=== PATIENT | male | born 1985 | race Caucasian/White ===

== ENCOUNTER 2017-05-09 02:28 | Inpatient (IN) | payer OTHER ==
[2017-05-09] MEDS ORDERED: ALBUTEROL NEBULIZED 2.5 MG/3 ML INHALATION STA (02:52)
[2017-05-09] MEDS ORDERED: IPRATROPIUM 0.5 MG/2.5 ML NEBU INHALATION STA (02:54)
[2017-05-09] MEDS ORDERED: methylPREDNISolone SOD SUCCI 125 MG/2 ML VIAL IV STA (02:55)
--- NOTE | 2017-05-09 03:29 | ED ---
SOB HPI - General Source: patient Mode of arrival: ambulatory Limitations: no limitations <Elodia Bangura - Last Filed: 05/09/17 05:50> <Jonah Harris - Last Filed: 05/09/17 06:04> - General Chief Complaint: Shortness of Breath Stated Complaint: Asthma Attack X2 days Time Seen by Provider: 05/09/17 02:49 - History of Present Illness Initial Comments: 31-year-old male patient presents to emergency department today for evaluation of shortness of breath and chest tightness. Patient states he has had increased shortness of breath and wheezing for the last 2 days. Patient states the symptoms worsened tonight. Patient states he does have a history of asthma. States that he has been using his nebulizer breathing treatments however these have not helped. He states that he did two treatments prior to coming here without any relief of symptoms. He denies any triggering events such as upper respiratory illness. States that current symptoms may be related to seasonal ALLERGIES. Patient denies any recent fever, chills, abdominal pain , nausea, vomiting, diarrhea, constipation, back pain, numbness, tingling, dizziness, weakness, hematuria, dysuria, urinary urgency, urinary frequency, headache, visual changes, or any other complaints. Patient states that he was intubated previously about 16 years ago for an asthma exacerbation. (Elodia Bangura) - Related Data Home Medications Medication Instructions Recorded Confirmed Albuterol Nebulized [Ventolin 10/18/15 10/18/15 Nebulized] Dextroamphetamine/Amphetamine 10/18/15 10/18/15 [Adderall] FLUoxetine HCL [PROzac] 10/18/15 10/18/15 Previous Rx's Medication Instructions Recorded Albuterol Nebulized [Ventolin 2.5 mg INHALATION Q4H PRN #25 nebu 10/18/15 Nebulized] Albuterol Sulfate [Proair Hfa] 1 - 2 puff INHALATION Q4H PRN #1 10/18/15 inhaler Azithromycin [Zithromax Z-pack] 0 mg PO DIRECTED #1 pack 10/18/15 predniSONE 50 mg PO DAILY #5 tab 10/18/15 Allergies Allergy/AdvReac Type Severity Reaction Status Date / Time shellfish derived Allergy Anaphylaxis Verified 05/09/17 02:48 Review of Systems ROS Other: All systems not noted in ROS Statement are negative. <Elodia Bangura - Last Filed: 05/09/17 05:50> ROS Other: All systems not noted in ROS Statement are negative. <Jonah Harris - Last Filed: 05/09/17 06:04> ROS Statement: Those systems with pertinent positive or pertinent negative responses have been documented in the HPI. Past Medical History Past Medical History: Asthma History of Any Multi-Drug Resistant Organisms: None Reported Past Surgical History: No Surgical Hx Reported Past Psychological History: ADD/ADHD Smoking Status: Never smoker Past Alcohol Use History: None Reported Past Drug Use History: None Reported <Elodia Bangura - Last Filed: 05/09/17 05:50> General Exam Limitations: no limitations General appearance: alert, in distress, other (Well-developed, well-nourished male patient appears to be in moderate respiratory distress. Initial vital signs are temperature 97.6F, pulse 83, respirations 22, blood pressure 127/71, pulse ox 94% on room air. Patient is in tripod position with labored breathing noted. Is able to speak one to 2 words at a time.) ENT exam: Present: normal exam, normal oropharynx, mucous membranes moist Neck exam: Present: normal inspection. Absent: tenderness, meningismus, lymphadenopathy Respiratory exam: Present: wheezes (Tight expiratory and inspiratory wheezing noted throughout all posterior lung rizvi), accessory muscle use, decreased breath sounds. Absent: normal lung sounds bilaterally, respiratory distress, rales, rhonchi, stridor Cardiovascular Exam: Present: regular rate, normal rhythm, normal heart sounds. Absent: systolic murmur, diastolic murmur, rubs, gallop, clicks GI/Abdominal exam: Present: soft, normal bowel sounds. Absent: distended, tenderness, guarding, rebound, rigid Neurological exam: Present: alert, oriented X3, CN II-XII intact Psychiatric exam: Present: normal affect, normal mood Skin exam: Present: warm, dry, intact, normal color. Absent: rash <Elodia Bangura - Last Filed: 05/09/17 05:50> Course <Elodia Bangura - Last Filed: 05/09/17 05:50> <Jonah Harris - Last Filed: 05/09/17 06:04> Vital Signs 05/09/17 05/09/17 05/09/17 02:45 03:03 03:25 Temperature 97.6 F Pulse Rate 83 80 88 Respiratory 22 24 Rate Blood Pressure 127/71 O2 Sat by Pulse 94 L Oximetry 05/09/17 05/09/17 05/09/17 04:00 04:10 04:35 Temperature Pulse Rate 88 93 80 Respiratory 24 Rate Blood Pressure O2 Sat by Pulse 94 L 95 Oximetry 05/09/17 06:01 Temperature Pulse Rate 87 Respiratory 20 Rate Blood Pressure 142/78 O2 Sat by Pulse 96 Oximetry - Reevaluation(s) Reevaluation #1: 05/09/17 04:32 Did reevaluate patient who states that he still feels short of breath. He also reports increased anxiety. States that he feels like he can't relax. I am epinephrine and IV magnesium has been ordered. Patient's lung sounds have improved slightly. The patient seems to be moving more air however he remains wheezy throughout all rizvi. (Elodia Bangura) Medical Decision Making - Radiology Data Radiology results: report reviewed, image reviewed <Elodia Bangura - Last Filed: 05/09/17 05:50> <Jonah Harris - Last Filed: 05/09/17 06:04> - Medical Decision Making 31-year-old male patient presented for evaluation of shortness of breath and wheezing 2 days. Upon presentation patient was unable to speak full sentences , had an oxygen saturation 94%, and had tight expiratory wheezing throughout all lung rizvi with decreased air movement. Patient did receive a continuous updraft treatment, 125 mg Solu-Medrol IV push, 0.3 mg of epinephrine IM, and 2 g of IV magnesium. He states that his symptoms are somewhat improved however he still feels short of breath. Patient states that his home methods were not working and he feels that he would come back very shortly after being discharged if that were the case. Patient will be admitted for acute asthma exacerbation. He'll be given 125 mg of Solu-Medrol every 6 hours and DuoNeb updraft treatment every 4 hours. Patient states he has been treated by Dr. Perdue in the past, he will be consulted for pulmonology. Patient will be admitted to the care of Dr. Stanley. (Elodia Bangura) I saw this patient in conjunction with the physician legal executive assistant. I performed independent history and physical exam. Agree with case management. (Jonah Harris) - Radiology Data Two-view x-ray of the chest shows of the lungs are unremarkable no consolidation. Pleural spaces unremarkable with no pneumothorax. Heart is unremarkable with no cardiomegaly. Mediastinum is unremarkable. Bones and joints show mild degenerative changes of the spine. Soft tissue show her left nipple ring. Impression by Dr. Wray shows no acute findings. (Elodia Bangura) Disposition Decision to Admit Reason: Admit from EC Decision Date: 05/09/17 Decision Time: 05:49 <Elodia Bangura - Last Filed: 05/09/17 05:50> <Jonah Harris - Last Filed: 05/09/17 06:04> Clinical Impression: Acute asthma exacerbation Disposition: ADMITTED IP TO THIS HOSP
[2017-05-09] MEDS ORDERED: MAGNESIUM SULFATE-D5W PMX 1 GM in DEXTROSE/WATER 1 100ML.BAG IVPB ONE (03:32)
[2017-05-09] MEDS ORDERED: MAGNESIUM SULFATE-D5W PMX 2 GM in DEXTROSE/WATER 1 100ML.BAG IVPB ONE (03:37)
[2017-05-09] MEDS ORDERED: EPINEPHrine 1 MG/ML 1 ML AMP IM STA (03:37)
[2017-05-09] MEDS ORDERED: LORazepam 2 MG/ML SYRINGE IV STA (04:13)
--- NOTE | 2017-05-09 04:55 | XR ---
EXAM: XR Chest, 2 Views CLINICAL HISTORY: Reason: Pain TECHNIQUE: Frontal and lateral views of the chest. COMPARISON: No relevant prior studies available. FINDINGS: Lungs: Unremarkable. No consolidation. Pleural space: Unremarkable. No pneumothorax. Heart: Unremarkable. No cardiomegaly. Mediastinum: Unremarkable. Bones/joints: Mild degenerative changes of the spine. Soft tissues: Left nipple ring. IMPRESSION: No acute findings.
[2017-05-09] MEDS ORDERED: methylPREDNISolone SOD SUCCI 125 MG/2 ML VIAL IV SCH ×2 (05:45→10:00)
[2017-05-09] MEDS ORDERED: NALOXONE 0.4 MG/ML 1 ML VIAL IV PRN (05:45)
[2017-05-09] MEDS ORDERED: IBUPROFEN 400 MG TAB PO PRN (05:45)
[2017-05-09] MEDS ORDERED: IPRATROPIUM-ALBUTEROL 3 ML NEB INHALATION SCH (05:45)
[2017-05-09 06:18] VITALS: BMI 22.7
[2017-05-09 06:31] LABS: Basophils # (A) 0.1 k/uL (0-0.2); Basophils % (A) 0 %; CH 31.3; CHCM 33.1; Eosinophils # (A) 0.1 k/uL (0-0.7); Eosinophils % (A) 1 %; HCT 44.2 % (39.0-53.0); HDW 2.08; HGB 14.3 gm/dL (13.0-17.5); Luc # (Auto) 0.07; Luc % (Auto) 0; Lymphocytes # (A) 0.5 k/uL (1.0-4.8); Lymphocytes % (A) 3 %; MCH 30.7 pg (25.0-35.0); MCHC 32.3 g/dL (31.0-37.0); Mean Platelet Volume 8.7; Monocytes # (A) 0.5 k/uL (0-1.0); Monocytes % (A) 3 %; Neutrophils # (A) 15.9 k/uL (1.3-7.7); Neutrophils % (A) 93 %; RBC 4.65 m/uL (4.30-5.90); RDW 14.7 % (11.5-15.5); WBC (Perox) 16.61
[2017-05-09 06:46] LABS: ALT 123 U/L (21-72); AST 56 U/L (17-59); Alkaline Phosphatase 75 U/L (38-126); Anion Gap 12 mmol/L; Blood Urea Nitrogen 17 mg/dL (9-20); Calcium 8.9 mg/dL (8.4-10.2); Carbon Dioxide 23 mmol/L (22-30); Chloride 101 mmol/L (98-107); Glucose 112 mg/dL (74-99); Non-African American GFR(MDRD) >60 (>60 ml/min/1.73 sqM); Potassium 4.6 mmol/L (3.5-5.1); Sodium 136 mmol/L (137-145); Total Bilirubin 0.3 mg/dL (0.2-1.3); Total Protein 6.5 g/dL (6.3-8.2)
[2017-05-09] MEDS: IPRATROPIUM-ALBUTEROL 3 ML NEB INHALATION SCH ×5 (08:10→19:32)
[2017-05-09] MEDS ORDERED: NON-FORMULARY DRUG (Dextroamphetamine/Amphetamine [Adderall] 30 MG) PO SCH (11:15)
[2017-05-09] MEDS: SYMBICORT 160-4.5 MCG INHALER INHALATION SCH ×2 (11:25→19:32)
[2017-05-09] MEDS: FLUoxetine HCL 20 MG CAP PO SCH ×2 (11:53→21:02)
[2017-05-09 12:25] LABS: Glucose,Whole Blood 152 mg/dL (75-99)
--- NOTE | 2017-05-09 12:34 | P.HPIM ---
History of Present Illness 31-year-old male patient presents to emergency department today for evaluation of shortness of breath and chest tightness. Patient states he has had increased shortness of breath and wheezing for the last 3 days. Symptoms were worse yesterday night. Patient states he does have a history of asthma. States that he has been using his nebulizer breathing treatments however these have not helped. He states that he did two treatments prior to coming here without any relief of symptoms. He denies any triggering events such as upper respiratory illness. States that current symptoms may be related to seasonal ALLERGIES. Patient denies any recent fever, chills, abdominal pain, nausea, vomiting, diarrhea, constipation, back pain, numbness, tingling, dizziness, weakness, hematuria, dysuria, urinary urgency, urinary frequency, headache, visual changes, or any other complaints. Patient states that he was intubated previously about 16 years ago for an asthma exacerbation. Patient is still having expiratory wheeze. Although significant improvement since yesterday patient was diagnosed with asthma as a child Review of Systems REVIEW OF SYSTEMS: CONSTITUTIONAL: No fever, no malaise, no fatigue. HEENT: No recent visual problems or hearing problems. Denied any sore throat. CARDIOVASCULAR: No chest pain, orthopnea, PND, no palpitations, no syncope. PULMONARY: As described in HPI GASTROINTESTINAL: No diarrhea, no nausea, no vomiting, no abdominal pain. Normoactive bowel sounds. NEUROLOGICAL: No headaches, no weakness, no numbness. HEMATOLOGICAL: Denies any bleeding or petechiae. GENITOURINARY: Denies any burning micturition, frequency, or urgency. MUSCULOSKELETAL/RHEUMATOLOGICAL: Denies any joint pain, swelling, or any muscle pain. ENDOCRINE: Denies any polyuria or polydipsia. The rest of the 14-point review of systems is negative. Past Medical History Past Medical History: Asthma History of Any Multi-Drug Resistant Organisms: None Reported Past Surgical History: No Surgical Hx Reported Past Psychological History: ADD/ADHD Smoking Status: Never smoker Past Alcohol Use History: None Reported Past Drug Use History: None Reported - Past Family History Father Family Medical History: No Reported History Mother Family Medical History: No Reported History Medications and Allergies Home Medications Medication Instructions Recorded Confirmed Type Albuterol Sulfate [Proair Hfa] 2 puff INHALATION RT-Q4H PRN 05/09/17 05/09/17 History Dextroamphetamine/Amphetamine 30 mg PO BID 05/09/17 05/09/17 History [Adderall] FLUoxetine HCL [PROzac] 20 mg PO BID 05/09/17 05/09/17 History Allergies Allergy/AdvReac Type Severity Reaction Status Date / Time shellfish derived Allergy Anaphylaxis Verified 05/09/17 08:05 Physical Exam Vitals: Vital Signs Temp Pulse Pulse Resp BP BP Pulse Ox 05/09/17 11:40 88 05/09/17 11:26 84 05/09/17 08:20 96 05/09/17 08:10 92 05/09/17 07:00 98.6 F 103 H 18 105/62 93 L 05/09/17 06:01 87 20 142/78 96 05/09/17 04:35 80 24 95 05/09/17 04:10 93 94 L 05/09/17 04:00 88 05/09/17 03:25 88 24 05/09/17 03:03 80 05/09/17 02:45 97.6 F 83 22 127/71 94 L Intake and Output 05/08/17 05/09/17 05/09/17 22:59 06:59 14:59 Intake Total 240 Balance 240 Intake: Oral 240 Other: Voiding Method Toilet Weight 65.771 kg PHYSICAL EXAMINATION: GENERAL: The patient is alert and oriented x3, not in any acute distress. Well developed, well nourished. HEENT: Pupils are round and equally reacting to light. EOMI. No scleral icterus. No conjunctival pallor. Normocephalic, atraumatic. No pharyngeal erythema. No thyromegaly. CARDIOVASCULAR: S1 and S2 present. No murmurs, rubs, or gallops. PULMONARY: Significant expiratory wheezing, minimally decreased air entry into bilateral lung rizvi no crackles are appreciated. ABDOMEN: Soft, nontender, nondistended, normoactive bowel sounds. No palpable organomegaly. MUSCULOSKELETAL: No joint swelling or deformity. EXTREMITIES: No cyanosis, clubbing, or pedal edema. NEUROLOGICAL: Gross neurological examination did not reveal any focal deficits. SKIN: No rashes. Results CBC & Chem 7: 05/09/17 06:00 05/09/17 06:00 Labs: Abnormal Lab Results - Last 24 Hours (Table) 05/09/17 05/09/17 05/09/17 Range/Units 06:00 06:00 12:19 WBC 17.0 H (3.8-10.6) k/uL Neutrophils # 15.9 H (1.3-7.7) k/uL Lymphocytes # 0.5 L (1.0-4.8) k/uL Sodium 136 L (137-145) mmol/L Glucose 112 H (74-99) mg/dL POC Glucose (mg/dL) 152 H (75-99) mg/dL ALT 123 H (21-72) U/L Assessment and Plan Plan: #1 acute hypoxic respiratory failure: Secondary to asthma exacerbation patient appears to have chronic intermittent asthma now in status asthmaticus with significant improvement in symptoms patient will be continued on IV steroids inhalational steroids and albuterol and long-acting beta agonist. Patient will need to be discharged on tapering dose of steroids tomorrow morning. #2 asthmatic bronchitis: ALLERGIC bronchitis will not require any antibiotics. #3 leukocytosis: Reactive no signs or symptoms of infection at this point of time. #4 depression
[2017-05-09] MEDS: INSULIN LISPRO (humaLOG) 300 UNIT/3 ML VIAL SQ SCH ×3 (12:37→21:02)
[2017-05-09 13:19] LABS: Hemoglobin A1C 5.3 % (4.2-6.1)
[2017-05-09] MEDS: traMADol 50 MG TAB PO PRN ×2 (14:20→20:16)
[2017-05-09] MEDS: SODIUM CHLORIDE 0.9% 1,000 ML IV SCH (16:23)
--- NOTE | 2017-05-09 16:24 | XR ---
Abdomen HISTORY: Pain, history of kidney stones Frontal view of the abdomen on 2 images Lung bases are clear. No evident bowel obstruction or pneumoperitoneum. Bowel gas may obscure underly ing detail. Calcifications not evident. Bone mineralization is normal. IMPRESSION: Nonobstructive bowel gas pattern.
[2017-05-09] MEDS: KETOROLAC 30 MG/ML 1 ML VIAL IVP PRN ×2 (16:28→22:18)
--- NOTE | 2017-05-09 16:44 | P.CNPUL ---
History of Present Illness Consult date: 05/09/17 Reason for consult: dyspnea History of present illness: A very pleasant 31-year-old male patient, asthmatic since childhood, coming in with increased cough chest congestion and chest tightness and wheezing which is typical of an acute asthma exacerbation. The patient claims that his asthma has been mild intermittent in nature and he has required only albuterol HFA and nebulized treatment only on as-needed basis. He did not require any form of maintenance treatment over the years. He has one episode of respiratory failure requiring intubation mechanical ventilation this occurred after he was exposed to shellfish where he had an anaphylactic reaction. Otherwise, the patient has been doing relatively well and his last treatment for asthma exacerbation was more than a year ago. He has not required systemic steroids. His stents required any antibiotic treatment. 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 No exposure to any industrial fumes or chemicals. No environmental ALLERGIES. No sinus pain or drainage. No heartburn. No nausea. No vomiting. No pleurisy. No chest pain. 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 The patient has been placed on Symbicort. The patient has been placed on DuoNeb neb last treatment [id number]. The patient has been placed on IV Solu-Medrol. Feeling much better compared to yesterday. No family history of bronchial asthma. He does with his and has 2 children which are free of any asthma. Chest x-ray is clear. No nasal polyposis.. Review of Systems Constitutional: Denies chills, Denies fever Eyes: denies blurred vision, denies bulging eye, denies decreased vision Ears: deny: ear discharge, earache, tinnitus Ears, nose, mouth and throat: Denies headache, Denies sore throat Cardiovascular: Reports shortness of breath Respiratory: Reports dyspnea, Reports wheezing Gastrointestinal: Denies abdominal pain, Denies diarrhea, Denies nausea, Denies vomiting Genitourinary: Reports as per HPI Musculoskeletal: Denies myalgias Musculoskeletal: absent: ankle pain, ankle stiffness, ankle swelling Integumentary: Denies pruritus, Denies rash Neurological: Denies numbness, Denies weakness Psychiatric: Denies anxiety, Denies depression Endocrine: Denies fatigue, Denies weight change Past Medical History Past Medical History: Asthma History of Any Multi-Drug Resistant Organisms: None Reported Past Surgical History: No Surgical Hx Reported Past Psychological History: ADD/ADHD Smoking Status: Never smoker Past Alcohol Use History: None Reported Past Drug Use History: None Reported - Past Family History Father Family Medical History: No Reported History Mother Family Medical History: No Reported History Medications and Allergies Home Medications Medication Instructions Recorded Confirmed Type Albuterol Sulfate [Proair Hfa] 2 puff INHALATION RT-Q4H PRN 05/09/17 05/09/17 History Dextroamphetamine/Amphetamine 30 mg PO BID 05/09/17 05/09/17 History [Adderall] FLUoxetine HCL [PROzac] 20 mg PO BID 05/09/17 05/09/17 History Allergies Allergy/AdvReac Type Severity Reaction Status Date / Time shellfish derived Allergy Anaphylaxis Verified 05/09/17 08:05 Physical Exam Vitals: Vital Signs Temp Pulse Pulse Resp BP BP Pulse Ox 05/09/17 15:42 88 05/09/17 15:30 80 05/09/17 14:46 98.9 F 109 H 18 134/60 91 L 05/09/17 11:40 88 05/09/17 11:26 84 05/09/17 08:20 96 05/09/17 08:10 92 05/09/17 07:00 98.6 F 103 H 18 105/62 93 L 05/09/17 06:01 87 20 142/78 96 05/09/17 04:35 80 24 95 05/09/17 04:10 93 94 L 05/09/17 04:00 88 05/09/17 03:25 88 24 05/09/17 03:03 80 05/09/17 02:45 97.6 F 83 22 127/71 94 L Intake and Output 05/09/17 05/09/17 05/09/17 06:59 14:59 22:59 Intake Total 440 Balance 440 Intake: Oral 440 Other: Voiding Method Toilet # Voids 2 # Bowel Movements 0 Weight 65.771 kg Gen. appearance she is calm and comfortable likely distress. Head is atraumatic normocephalic.Head exam was generally normal. There was no scleral icterus or corneal arcus. Mucous membranes were moist.Neck was supple and without jugular venous distension, thyromegaly, or carotid bruits. Carotids were easily palpable bilaterally. There was no adenopathy. Lung sounds are diminished bilaterally and diffuse scattered expiratory wheezes throughout the lung rizvi.Cardiac exam revealed the PMI to be normally situated and sized. The rhythm was regular and no extrasystoles were noted during several minutes of auscultation. The first and second heart sounds were normal and physiologic splitting of the second heart sound was noted. There were no murmurs, rubs, clicks, or gallops.Abdominal exam revealed normal bowel sounds. The abdomen was soft, non-tender, and without masses, organomegaly, or appreciable enlargement of the abdominal aorta.Examination of the extremities revealed easily palpable radial, femoral and pedal pulses. There was no cyanosis, clubbing or edema. Skin is within normal without any ulcers or wounds or eczema. Skeletal exam is negative for any arthritis or joint swelling. Neuro exam is negative for any change in mental status or focal neurological deficits. Results - Laboratory Findings CBC and BMP: 05/09/17 06:00 05/09/17 06:00 Abnormal lab findings: Abnormal Labs 05/09/17 05/09/17 05/09/17 06:00 06:00 12:19 WBC 17.0 H Neutrophils # 15.9 H Lymphocytes # 0.5 L Sodium 136 L Glucose 112 H POC Glucose (mg/dL) 152 H ALT 123 H - Diagnostic Findings Chest x-ray: image reviewed Assessment and Plan Plan: Assessment 1 shortness of breath secondary to an acute asthma exacerbation/bronchitis 2 mild intermittent bronchial asthma at baseline 3 nasal septal deviation/traumatic in nature 4 mild leukocytosis Plan Fully agree on the current treatment. Anticipate improvement. Will need outpatient follow-up in consultation for a maintenance treatment for bronchial asthma. He is stable. Chest x-rays clear. We'll continue to follow.
[2017-05-09 17:12] LABS: Glucose,Whole Blood 187 mg/dL (75-99)
[2017-05-09] MEDS: PANTOPRAZOLE 40 MG TABLET PO SCH (17:31)
[2017-05-09] MEDS ORDERED: KETOROLAC 30 MG/ML 1 ML VIAL IVP SCH (18:00)
[2017-05-09] MEDS ORDERED: SYMBICORT 160-4.5 MCG INHALER INHALATION SCH (20:00)
[2017-05-09] MEDS: FAMOTIDINE 20 MG TAB PO SCH (21:02)
[2017-05-09] MEDS: methylPREDNISolone SOD SUCCI 40 MG/ML 1 ML VIAL IV SCH (21:02)
[2017-05-09 21:13] LABS: Glucose,Whole Blood 183 mg/dL (75-99)
[2017-05-09] MEDS: IPRATROPIUM-ALBUTEROL 3 ML NEB INHALATION PRN (23:29)
[2017-05-10] MEDS: SODIUM CHLORIDE 0.9% 1,000 ML IV SCH ×2 (03:05→12:38)
[2017-05-10] MEDS: IPRATROPIUM-ALBUTEROL 3 ML NEB INHALATION PRN (03:55)
[2017-05-10] MEDS: INSULIN LISPRO (humaLOG) 300 UNIT/3 ML VIAL SQ SCH ×2 (07:25→12:38)
[2017-05-10 07:30] LABS: Glucose,Whole Blood 128 mg/dL (75-99)
[2017-05-10] MEDS: IPRATROPIUM-ALBUTEROL 3 ML NEB INHALATION SCH ×2 (07:34→12:00)
[2017-05-10] MEDS: SYMBICORT 160-4.5 MCG INHALER INHALATION SCH (07:35)
[2017-05-10 07:40] VITALS: BP 112/72; RESP 20; TEMP 97.4
[2017-05-10] MEDS: methylPREDNISolone SOD SUCCI 40 MG/ML 1 ML VIAL IV SCH (08:36)
[2017-05-10] MEDS: PANTOPRAZOLE 40 MG TABLET PO SCH (08:37)
[2017-05-10] MEDS: FLUoxetine HCL 20 MG CAP PO SCH (08:37)
[2017-05-10] MEDS: FAMOTIDINE 20 MG TAB PO SCH (08:37)
[2017-05-10 12:14] VITALS: PULSE 85
--- NOTE | 2017-05-10 14:14 | P.PN ---
Subjective A very pleasant 31-year-old male patient, asthmatic since childhood, coming in with increased cough chest congestion and chest tightness and wheezing which is typical of an acute asthma exacerbation. The patient claims that his asthma has been mild intermittent in nature and he has required only albuterol HFA and nebulized treatment only on as-needed basis. He did not require any form of maintenance treatment over the years. He has one episode of respiratory failure requiring intubation mechanical ventilation this occurred after he was exposed to shellfish where he had an anaphylactic reaction. Otherwise, the patient has been doing relatively well and his last treatment for asthma exacerbation was more than a year ago. He has not required systemic steroids. His stents required any antibiotic treatment. 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 No exposure to any industrial fumes or chemicals. No environmental ALLERGIES. No sinus pain or drainage. No heartburn. No nausea. No vomiting. No pleurisy. No chest pain. 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 The patient has been placed on Symbicort. The patient has been placed on DuoNeb neb last treatment [id number]. The patient has been placed on IV Solu-Medrol. Feeling much better compared to yesterday. No family history of bronchial asthma. He does with his and has 2 children which are free of any asthma. Chest x-ray is clear. No nasal polyposis.. On 05/10/2017, patient is being seen in follow-up in regards to his asthma exacerbation. He is significantly improved. No respiratory difficulties. He has some minimal residual wheezing. Had marked improvement in his condition and the patient may be considered for discharge on a prednisone burst taper. No fever. No chills. No pleurisy. No hemoptysis. No other complaints otherwise. Objective - Vital Signs Vital signs: Vital Signs Temp 97.4 F L 05/10/17 07:00 Pulse 85 05/10/17 12:14 Resp 20 05/10/17 08:00 BP 112/72 05/10/17 07:00 Pulse Ox 94 L 05/10/17 07:00 Intake & Output 05/09/17 05/10/17 05/10/17 18:59 06:59 18:59 Intake Total 440 1200 Balance 440 1200 Intake: Oral 440 1200 Other: Voiding Method Toilet # Voids 2 0 # Bowel Movements 0 - Exam Gen. appearance she is calm and comfortable likely distress. Head is atraumatic normocephalic.Head exam was generally normal. There was no scleral icterus or corneal arcus. Mucous membranes were moist.Neck was supple and without jugular venous distension, thyromegaly, or carotid bruits. Carotids were easily palpable bilaterally. There was no adenopathy. Lung sounds are improved and there is diminished wheezing.Cardiac exam revealed the PMI to be normally situated and sized. The rhythm was regular and no extrasystoles were noted during several minutes of auscultation. The first and second heart sounds were normal and physiologic splitting of the second heart sound was noted. There were no murmurs, rubs, clicks, or gallops.Abdominal exam revealed normal bowel sounds. The abdomen was soft, non-tender, and without masses, organomegaly , or appreciable enlargement of the abdominal aorta.Examination of the extremities revealed easily palpable radial, femoral and pedal pulses. There was no cyanosis, clubbing or edema. Skin is within normal without any ulcers or wounds or eczema. Skeletal exam is negative for any arthritis or joint swelling. Neuro exam is negative for any change in mental status or focal neurological deficits. - Labs CBC & Chem 7: 05/09/17 06:00 05/09/17 06:00 Labs: Abnormal Lab Results - Last 24 Hours (Table) 05/09/17 05/09/17 05/10/17 Range/Units 17:08 20:54 06:59 POC Glucose (mg/dL) 187 H 183 H 128 H (75-99) mg/dL Assessment and Plan Plan: Assessment 1 shortness of breath secondary to an acute asthma exacerbation/bronchitis, improving and there has been significant improvement over the past 24 hours with a combination of bronchodilators and steroids 2 mild intermittent bronchial asthma at baseline 3 nasal septal deviation/traumatic in nature 4 mild leukocytosis Plan Discharge planning is in progress on a prednisone burst taper and albuterol solution and HFA on an estimated basis. No need for maintenance at this point for asthma control knowing that the patient's disease was mild intermittent nature. Discharge per medicine
--- NOTE | 2017-05-10 19:15 | P.DS ---
Providers Date of admission: 05/09/17 05:42 Attending physician: Zahida Stanley Consults: 05/09/17 05:45 Consult Physician Stat Consulting Provider: Ernesto Perdue Consult Reason/Comments: Acute Asthma Exacerbation Do you want consulting provider notified?: Yes Primary care physician: Kenrick Wahl [facility] Course: This 28-year-old gentleman was admitted with the bronchial asthma acute exacerbation as well as acute hypoxic respiratory failure. The patient was seen in consultation by Dr. Coffman. Patient was treated with steroids and bronchodilators. Patient improved significantly. Dr. Coffman recommended to continue bronchodilators and assess tapering doses steroids. I recommended the patient to follow up closely with the primary physician and as well as Dr. Coffman patient understands and agrees. On exam vitals stable. Cardio S1 and S2 normal. Respirator system breath sounds equal. Few rhonchi plus expiratory wheezing also present. Abdomen soft nontender. Final diagnoses 1. Bronchial asthma acute exacerbation with acute hypoxic respiratory failure improved. 2. Asthmatic bronchitis. 3. Leukocytosis 4. Depression. Plan - Discharge Summary New Discharge Prescriptions: New Budesonide-Formot 160-4.5 Mcg [Symbicort 160-4.5 Mcg Inhaler] 2 puff INHALATION RT-BID #1 puff predniSONE 10 mg PO DIRECTED #30 tab Continue FLUoxetine HCL [PROzac] 20 mg PO BID Dextroamphetamine/Amphetamine [Adderall] 30 mg PO BID Albuterol Sulfate [Proair Hfa] 2 puff INHALATION RT-Q4H PRN #1 PRN Reason: Shortness Of Breath Discharge Medication List Dextroamphetamine/Amphetamine [Adderall] 30 mg PO BID 05/09/17 [History] FLUoxetine HCL [PROzac] 20 mg PO BID 05/09/17 [History] Albuterol Sulfate [Proair Hfa] 2 puff INHALATION RT-Q4H PRN #1 05/10/17 [Rx] Budesonide-Formot 160-4.5 Mcg [Symbicort 160-4.5 Mcg Inhaler] 2 puff INHALATION RT-BID #1 puff 05/10/17 [Rx] predniSONE 10 mg PO DIRECTED #30 tab 05/10/17 [Rx] Follow up Appointment(s)/Referral(s): Kenrick Wahl DO [Primary Care Provider] - 1-2 days Marry Coffman MD [STAFF PHYSICIAN] - 1 Week Ambulatory/Diagnostic Orders: Complete Blood Count w/diff [LAB.AMB] Location: Determined By Patient Activity/Diet/Wound Care/Special Instructions: New consult for bronchial asthma treatment plan diet reg act limited till f/u Discharge Disposition: HOME SELF-CARE
== END 2017-05-10 15:57 | disposition home or self-care (01) | DRG 202 ==
LOC: EC 02:28 → 4MS4W 05:42
PROVIDERS: ADMIT Internal Medicine; ATTEND Internal Medicine
DX: J45.21 Mild intermittent asthma with (acute) exacerbation (principal); J96.01 Acute respiratory failure with hypoxia; F32.9 Major depressive disorder, single episode, unspecified; F90.9 Attention-deficit hyperactivity disorder, unspecified type; J34.2 Deviated nasal septum; Z79.899 Other long term (current) drug therapy; Z91.013 Allergy to seafood
CPT/HCPCS: 71020; 74000; 80053; 83036; 85025; 94640; 94644; 94760; 96365; 96372; 96374; 96375; 99285

== ENCOUNTER 2017-12-13 07:32 | Inpatient (IN) | payer OTHER ==
[2017-12-13] MEDS ORDERED: MAGNESIUM SULFATE-D5W PMX 1 GM in DEXTROSE/WATER 1 100ML.BAG IVPB STA (07:35)
[2017-12-13] MEDS ORDERED: SODIUM CHLORIDE 0.9% 500 ML IV STA (07:35)
[2017-12-13] MEDS ORDERED: SODIUM CHLORIDE 0.9% 1,000 ML IV STA (07:35)
--- NOTE | 2017-12-13 07:38 | ED ---
Asthma HPI - General Stated Complaint: MACIE Time Seen by Provider: 12/13/17 07:32 Source: patient, EMS, RN notes reviewed Mode of arrival: EMS - History of Present Illness Initial Comments: This is a 32-year-old male with a history of asthma states he had the onset of shortness of breath and feeling which is gotten progressively worse throughout the evening. He also states she's had some chest pain because of the difficulty breathing tightness. No fevers chills nausea vomiting sweats he was given a DuoNeb by paramedics this didn't help much and was given subcutaneous epinephrine. No DuoNeb and another epinephrine. He is reported to have diffuse wheezing but does report he is feeling somewhat improved. No phlegm production no other symptoms no other modifying factors at this time MD Complaint: "asthma attack", shortness of breath - Related Data Home Medications Medication Instructions Recorded Confirmed Dextroamphetamine/Amphetamine 30 mg PO BID 05/09/17 05/09/17 [Adderall] FLUoxetine HCL [PROzac] 20 mg PO BID 05/09/17 05/09/17 Previous Rx's Medication Instructions Recorded Albuterol Sulfate [Proair Hfa] 2 puff INHALATION RT-Q4H PRN #1 05/10/17 Budesonide-Formot 160-4.5 Mcg 2 puff INHALATION RT-BID #1 puff 05/10/17 [Symbicort 160-4.5 Mcg Inhaler] predniSONE 10 mg PO DIRECTED #30 tab 05/10/17 Allergies Allergy/AdvReac Type Severity Reaction Status Date / Time shellfish derived Allergy Anaphylaxis Verified 05/09/17 08:05 Review of Systems ROS Statement: Those systems with pertinent positive or pertinent negative responses have been documented in the HPI. ROS Other: All systems not noted in ROS Statement are negative. Past Medical History Past Medical History: Asthma History of Any Multi-Drug Resistant Organisms: None Reported Past Surgical History: No Surgical Hx Reported Past Psychological History: ADD/ADHD Smoking Status: Never smoker Past Alcohol Use History: None Reported Past Drug Use History: None Reported - Past Family History Father Family Medical History: No Reported History Mother Family Medical History: No Reported History General Exam - General Exam Comments Initial Comments: This is a well-developed well-nourished awake alert oriented 3 male he does demonstrate audible wheezing. General appearance: alert, anxious, in distress Head exam: Present: atraumatic, normocephalic, normal inspection Eye exam: Present: normal appearance, PERRL, EOMI. Absent: scleral icterus, conjunctival injection, periorbital swelling ENT exam: Present: normal exam, mucous membranes moist Neck exam: Present: normal inspection. Absent: tenderness, meningismus, lymphadenopathy Respiratory exam: Present: respiratory distress, wheezes, accessory muscle use, decreased breath sounds. Absent: rales, rhonchi, stridor, chest wall tenderness Cardiovascular Exam: Present: normal rhythm, tachycardia, normal heart sounds. Absent: systolic murmur, diastolic murmur, rubs, gallop, clicks GI/Abdominal exam: Present: soft, normal bowel sounds. Absent: distended, tenderness, guarding, rebound, rigid Extremities exam: Present: normal inspection, full ROM, normal capillary refill. Absent: tenderness, pedal edema, joint swelling, calf tenderness Back exam: Present: normal inspection Neurological exam: Present: alert, oriented X3, CN II-XII intact Psychiatric exam: Present: normal affect, normal mood Skin exam: Present: warm, dry, intact, normal color. Absent: rash Course Vital Signs 12/13/17 12/13/17 12/13/17 07:33 08:12 08:22 Temperature 97.2 F L Pulse Rate 105 H 84 78 Respiratory 26 H Rate Blood Pressure 156/68 O2 Sat by Pulse 94 L Oximetry 12/13/17 08:49 Temperature Pulse Rate 86 Respiratory 18 Rate Blood Pressure 131/78 O2 Sat by Pulse 96 Oximetry - Reevaluation(s) Reevaluation #1: 12/13/17 08:08 Patient does appear to be resting more comfortably than arrival he still demonstrating diffuse wheezing with some accessory muscle and chest wall movement. He will receive a DuoNeb. Reevaluation #2: 12/13/17 10:01 The patient still demonstrates marked dyspnea with diffuse wheezing he will be admitted I did discuss this with him. Medical Decision Making - Lab Data Result diagrams: 12/13/17 07:40 12/13/17 07:40 Lab Results 12/13/17 12/13/17 12/13/17 Range/Units 07:40 07:40 07:40 WBC 15.4 H (3.8-10.6) k/uL RBC 4.66 (4.30-5.90) m/uL Hgb 13.5 (13.0-17.5) gm/dL Hct 42.8 (39.0-53.0) % MCV 91.9 (80.0-100.0) fL MCH 29.1 (25.0-35.0) pg MCHC 31.6 (31.0-37.0) g/dL RDW 13.7 (11.5-15.5) % Plt Count 175 (150-450) k/uL Neutrophils % 83 % Lymphocytes % 8 % Monocytes % 4 % Eosinophils % 3 % Basophils % 0 % Neutrophils # 12.8 H (1.3-7.7) k/uL Lymphocytes # 1.3 (1.0-4.8) k/uL Monocytes # 0.7 (0-1.0) k/uL Eosinophils # 0.5 (0-0.7) k/uL Basophils # 0.0 (0-0.2) k/uL PT (9.0-12.0) sec INR (<1.2) APTT (22.0-30.0) sec D-Dimer (<0.60) mg/L FEU Sodium 145 (137-145) mmol/L Potassium 4.0 (3.5-5.1) mmol/L Chloride 113 H (98-107) mmol/L Carbon Dioxide 18 L (22-30) mmol/L Anion Gap 14 mmol/L BUN 15 (9-20) mg/dL Creatinine 0.71 (0.66-1.25) mg/dL Est GFR (CKD-EPI)AfAm >90 (>60 ml/min/1.73 sqM) Est GFR (CKD-EPI)NonAf >90 (>60 ml/min/1.73 sqM) Glucose 138 H (74-99) mg/dL Calcium 8.2 L (8.4-10.2) mg/dL Magnesium 1.9 (1.6-2.3) mg/dL Total Bilirubin 0.2 (0.2-1.3) mg/dL AST 24 (17-59) U/L ALT 31 (21-72) U/L Alkaline Phosphatase 49 (38-126) U/L Total Creatine Kinase 220 H (55-170) U/L CK-MB (CK-2) 3.7 H* (0.0-2.4) ng/mL CK-MB (CK-2) Rel Index 1.7 Troponin I <0.012 (0.000-0.034) ng/mL NT-Pro-B Natriuret Pep pg/mL Total Protein 6.0 L (6.3-8.2) g/dL Albumin 3.6 (3.5-5.0) g/dL 12/13/17 12/13/17 Range/Units 07:40 07:40 WBC (3.8-10.6) k/uL RBC (4.30-5.90) m/uL Hgb (13.0-17.5) gm/dL Hct (39.0-53.0) % MCV (80.0-100.0) fL MCH (25.0-35.0) pg MCHC (31.0-37.0) g/dL RDW (11.5-15.5) % Plt Count (150-450) k/uL Neutrophils % % Lymphocytes % % Monocytes % % Eosinophils % % Basophils % % Neutrophils # (1.3-7.7) k/uL Lymphocytes # (1.0-4.8) k/uL Monocytes # (0-1.0) k/uL Eosinophils # (0-0.7) k/uL Basophils # (0-0.2) k/uL PT 9.9 (9.0-12.0) sec INR 1.0 (<1.2) APTT 21.9 L (22.0-30.0) sec D-Dimer 0.23 (<0.60) mg/L FEU Sodium (137-145) mmol/L Potassium (3.5-5.1) mmol/L Chloride (98-107) mmol/L Carbon Dioxide (22-30) mmol/L Anion Gap mmol/L BUN (9-20) mg/dL Creatinine (0.66-1.25) mg/dL Est GFR (CKD-EPI)AfAm (>60 ml/min/1.73 sqM) Est GFR (CKD-EPI)NonAf (>60 ml/min/1.73 sqM) Glucose (74-99) mg/dL Calcium (8.4-10.2) mg/dL Magnesium (1.6-2.3) mg/dL Total Bilirubin (0.2-1.3) mg/dL AST (17-59) U/L ALT (21-72) U/L Alkaline Phosphatase (38-126) U/L Total Creatine Kinase (55-170) U/L CK-MB (CK-2) (0.0-2.4) ng/mL CK-MB (CK-2) Rel Index Troponin I (0.000-0.034) ng/mL NT-Pro-B Natriuret Pep 58 pg/mL Total Protein (6.3-8.2) g/dL Albumin (3.5-5.0) g/dL - EKG Data -: EKG Interpreted by Me EKG shows normal: sinus rhythm (Sinus rhythm rate of 91 NE interval 144 QRS duration 84 QT since QTC of 374/460. [place] noted no acute ST-T wave changes) Critical Care Time Critical Care Time: Yes Critical Care Time: Critical care time of 37 minutes which includes initial monitoring the EMS run and discussed with paramedics history physical labs x-rays on the patient reevaluation patient several occasions discuss with the patient regarding findings discussion with the admitting physician Dr. mc admission orders and documentation of the above. Disposition Clinical Impression: Status asthmaticus, Failure of outpatient treatment Disposition: ADMITTED IP TO THIS HOSP Condition: Stable Referrals: Kenrick Wahl DO [Primary Care Provider] - 1-2 days
[2017-12-13 07:56] LABS: Basophils % (A) 0 %; Eosinophils # (A) 0.5 k/uL (0-0.7); Eosinophils % (A) 3 %; HCT 42.8 % (39.0-53.0); HGB 13.5 gm/dL (13.0-17.5); Lymphocytes # (A) 1.3 k/uL (1.0-4.8); Lymphocytes % (A) 8 %; MCH 29.1 pg (25.0-35.0); MCHC 31.6 g/dL (31.0-37.0); MCV 91.9 fL (80.0-100.0); Mean Platelet Volume 8.3; Monocytes # (A) 0.7 k/uL (0-1.0); Monocytes % (A) 4 %; Neutrophils # (A) 12.8 k/uL (1.3-7.7); Neutrophils % (A) 83 %; Platelet Count 175 k/uL (150-450); RBC 4.66 m/uL (4.30-5.90); RDW 13.7 % (11.5-15.5); WBC 15.4 k/uL (3.8-10.6)
[2017-12-13 08:07] LABS: Albumin 3.6 g/dL (3.5-5.0); Anion Gap 14 mmol/L; Carbon Dioxide 18 mmol/L (22-30); Chloride 113 mmol/L (98-107); Glucose 138 mg/dL (74-99); Sodium 145 mmol/L (137-145)
[2017-12-13 08:08] LABS: ALT 31 U/L (21-72); AST 24 U/L (17-59); Alkaline Phosphatase 49 U/L (38-126); Blood Urea Nitrogen 15 mg/dL (9-20); Calcium 8.2 mg/dL (8.4-10.2); Magnesium 1.9 mg/dL (1.6-2.3); Total Bilirubin 0.2 mg/dL (0.2-1.3)
[2017-12-13] MEDS ORDERED: IPRATROPIUM-ALBUTEROL 3 ML NEB INHALATION STA (08:08)
--- NOTE | 2017-12-13 08:13 | XR ---
EXAMINATION TYPE: XR chest 2V DATE OF EXAM: 12/13/2017 HISTORY: difficulty breathing. REFERENCE: Previous study dated 05/09/2017. FINDINGS: The lungs are well-inflated and clear. Pleural spaces are clear. The heart is not enlarged. IMPRESSION: NO ACUTE INTRATHORACIC ABNORMALITY.
[2017-12-13 08:22] LABS: Creatine Kinase 220 U/L (55-170)
[2017-12-13 08:25] LABS: D-Dimer 0.23 mg/L FEU (<0.60); Prothrombin Time 9.9 sec (9.0-12.0)
[2017-12-13 08:26] LABS: Partial Thromboplastin Time 21.9 sec (22.0-30.0)
[2017-12-13 08:35] LABS: Troponin I <0.012 ng/mL (0.000-0.034)
[2017-12-13 08:40] LABS: Creatine Kinase MB 3.7 ng/mL (0.0-2.4)
[2017-12-13] MEDS ORDERED: SODIUM CHLORIDE 0.9% 1,000 ML IV SCH (10:15)
[2017-12-13] MEDS: IPRATROPIUM-ALBUTEROL 3 ML NEB INHALATION SCH ×4 (11:15→23:15)
--- NOTE | 2017-12-13 11:44 | P.HPIM ---
History of Present Illness his is a 32-year-old male with a history of asthma states he had the onset of shortness of breath and feeling which is gotten progressively worse throughout the evening. He also states she's had some chest pain because of the difficulty breathing tightness. No fevers chills nausea vomiting sweats he was given a DuoNeb by paramedics this didn't help much and was given subcutaneous epinephrine. No DuoNeb and another epinephrine. He is reported to have diffuse wheezing but does report he is feeling somewhat improved. Patient is coughing unable to bring up any phlegm. Chest x-ray did not show any pneumonic process patient does have multiple ALLERGIES and the history of asthma which was diagnosed years ago. Review of Systems REVIEW OF SYSTEMS: CONSTITUTIONAL: No fever, no malaise, no fatigue. HEENT: No recent visual problems or hearing problems. Denied any sore throat. CARDIOVASCULAR: No chest pain, orthopnea, PND, no palpitations, no syncope. PULMONARY: As mentioned in HPI GASTROINTESTINAL: No diarrhea, no nausea, no vomiting, no abdominal pain. Normoactive bowel sounds. NEUROLOGICAL: No headaches, no weakness, no numbness. HEMATOLOGICAL: Denies any bleeding or petechiae. GENITOURINARY: Denies any burning micturition, frequency, or urgency. MUSCULOSKELETAL/RHEUMATOLOGICAL: Denies any joint pain, swelling, or any muscle pain. ENDOCRINE: Denies any polyuria or polydipsia. The rest of the 14-point review of systems is negative. Past Medical History Past Medical History: Asthma History of Any Multi-Drug Resistant Organisms: None Reported Past Surgical History: No Surgical Hx Reported Past Psychological History: ADD/ADHD Smoking Status: Never smoker Past Alcohol Use History: None Reported Past Drug Use History: None Reported - Past Family History Father Family Medical History: No Reported History Mother Family Medical History: No Reported History Medications and Allergies Home Medications Medication Instructions Recorded Confirmed Type Dextroamphetamine/Amphetamine 30 mg PO BID 05/09/17 12/13/17 History [Adderall] FLUoxetine HCL [PROzac] 20 mg PO BID 05/09/17 12/13/17 History Albuterol Sulfate [Proair Hfa] 2 puff INHALATION RT-Q4H PRN #1 05/10/17 Rx Allergies Allergy/AdvReac Type Severity Reaction Status Date / Time shellfish derived Allergy Anaphylaxis Verified 12/13/17 10:51 Physical Exam Vitals: Vital Signs Temp Pulse Pulse Resp BP BP Pulse Ox 12/13/17 11:25 77 12/13/17 11:15 98.2 F 76 82 22 136/76 96 12/13/17 11:02 97.1 F L 69 18 146/77 95 12/13/17 08:49 86 18 131/78 96 12/13/17 08:22 78 12/13/17 08:12 84 12/13/17 07:33 97.2 F L 105 H 26 H 156/68 94 L Intake and Output 12/12/17 12/13/17 12/13/17 22:59 06:59 14:59 Other: Weight 64 kg PHYSICAL EXAMINATION: GENERAL: The patient is alert and oriented x3, not in any acute distress. Well developed, well nourished. HEENT: Pupils are round and equally reacting to light. EOMI. No scleral icterus. No conjunctival pallor. Normocephalic, atraumatic. No pharyngeal erythema. No thyromegaly. CARDIOVASCULAR: S1 and S2 present. No murmurs, rubs, or gallops. PULMONARY: Decreased air entry with significant expiratory wheezing was appreciated. ABDOMEN: Soft, nontender, nondistended, normoactive bowel sounds. No palpable organomegaly. MUSCULOSKELETAL: No joint swelling or deformity. EXTREMITIES: No cyanosis, clubbing, or pedal edema. NEUROLOGICAL: Gross neurological examination did not reveal any focal deficits. SKIN: No rashes. Results CBC & Chem 7: 12/13/17 07:40 12/13/17 07:40 Labs: Abnormal Lab Results - Last 24 Hours (Table) 12/13/17 12/13/17 12/13/17 Range/Units 07:40 07:40 07:40 WBC 15.4 H (3.8-10.6) k/uL Neutrophils # 12.8 H (1.3-7.7) k/uL APTT (22.0-30.0) sec Chloride 113 H (98-107) mmol/L Carbon Dioxide 18 L (22-30) mmol/L Glucose 138 H (74-99) mg/dL Calcium 8.2 L (8.4-10.2) mg/dL Total Creatine Kinase 220 H (55-170) U/L CK-MB (CK-2) 3.7 H* (0.0-2.4) ng/mL Total Protein 6.0 L (6.3-8.2) g/dL 12/13/17 Range/Units 07:40 WBC (3.8-10.6) k/uL Neutrophils # (1.3-7.7) k/uL APTT 21.9 L (22.0-30.0) sec Chloride (98-107) mmol/L Carbon Dioxide (22-30) mmol/L Glucose (74-99) mg/dL Calcium (8.4-10.2) mg/dL Total Creatine Kinase (55-170) U/L CK-MB (CK-2) (0.0-2.4) ng/mL Total Protein (6.3-8.2) g/dL Assessment and Plan Plan: Acute hypoxic respiratory failure: Secondary to asthma exacerbation. Patient was started on systemic steroids which will be continued inhalational treatments there is no evidence of pneumonia patient will not require any antibiotics at this time. Patient was on 4 L of oxygen in ER patient is saturating well now. Patient denied any flulike symptoms -Multiple seasonal ALLERGIES -Patient has history of ADHD for which patient is on Advil which is being continued here
[2017-12-13] MEDS ORDERED: methylPREDNISolone SOD SUCCI 125 MG/2 ML VIAL IV SCH (12:00)
[2017-12-13] MEDS: methylPREDNISolone SOD SUCCI 40 MG/ML 1 ML VIAL IV SCH (16:25)
[2017-12-13] MEDS: FLUoxetine HCL 20 MG CAP PO SCH (20:47)
[2017-12-13] MEDS ORDERED: NON-FORMULARY DRUG (Dextroamphetamine/Amphetamine [Adderall] 30 MG) PO SCH (21:00)
[2017-12-14] MEDS: methylPREDNISolone SOD SUCCI 40 MG/ML 1 ML VIAL IV SCH ×4 (00:51→23:24)
[2017-12-14] MEDS: IPRATROPIUM-ALBUTEROL 3 ML NEB INHALATION SCH ×5 (03:22→19:46)
[2017-12-14] MEDS: FLUoxetine HCL 20 MG CAP PO SCH ×2 (08:56→20:36)
--- NOTE | 2017-12-14 16:59 | P.PN ---
Subjective Admitted for asthma exacerbation still has significant wheeze continue with IV steroids, if improved patient will be discharged tomorrow. Constitutional: Denied any fatigue denied any fever. Cardio vascular: denied any chest pain, palpitations Gastrointestinal denied any nausea vomiting Pulmonary: Continued shortness of breath Neurologic denied any new focal deficits Objective - Vital Signs Vital signs: Vital Signs Temp 98.8 F 12/14/17 14:42 Pulse 90 12/14/17 15:32 Resp 16 12/14/17 14:42 BP 127/70 12/14/17 14:42 Pulse Ox 93 L 12/14/17 14:42 Intake & Output 12/13/17 12/14/17 12/14/17 18:59 06:59 18:59 Weight 64 kg Other: Voiding Method Toilet # Voids 2 1 - Exam GENERAL: The patient is alert and oriented x3, not in any acute distress. Well developed, well nourished. HEENT: Pupils are round and equally reacting to light. EOMI. No scleral icterus. No conjunctival pallor. Normocephalic, atraumatic. No pharyngeal erythema. No thyromegaly. CARDIOVASCULAR: S1 and S2 present. No murmurs, rubs, or gallops. PULMONARY: Decreased air entry with significant expiratory wheezing was appreciated. Although improved compared to yesterday ABDOMEN: Soft, nontender, nondistended, normoactive bowel sounds. No palpable organomegaly. MUSCULOSKELETAL: No joint swelling or deformity. EXTREMITIES: No cyanosis, clubbing, or pedal edema. NEUROLOGICAL: Gross neurological examination did not reveal any focal deficits. SKIN: No rashes. - Labs CBC & Chem 7: 12/13/17 07:40 12/13/17 07:40 Assessment and Plan Plan: Acute hypoxic respiratory failure: Secondary to asthma exacerbation. Patient was started on systemic steroids which will be continued inhalational treatments there is no evidence of pneumonia patient will not require any antibiotics at this time. Patient was on 4 L of oxygen in ER patient is saturating well now. Patient denied any flulike symptoms. Improved compared to yesterday -Multiple seasonal ALLERGIES -Patient has history of ADHD for which patient is on Advil which is being continued here
[2017-12-15] MEDS: IPRATROPIUM-ALBUTEROL 3 ML NEB INHALATION SCH ×4 (00:13→13:31)
[2017-12-15 07:41] VITALS: BP 119/76; RESP 16; TEMP 96.9
[2017-12-15] MEDS: FLUoxetine HCL 20 MG CAP PO SCH (08:01)
[2017-12-15] MEDS: methylPREDNISolone SOD SUCCI 40 MG/ML 1 ML VIAL IV SCH (08:01)
--- NOTE | 2017-12-15 12:58 | P.DS ---
Providers Date of admission: 12/13/17 10:09 Attending physician: Christiano Felipe MD Primary care physician: [facility] Course: Admitted for asthma exacerbation, wheezing significantly improved patient has minimal wheeze on the left posterior lung rizvi right side is completely clear. Patient is comparing of cough with whitish sputum production patient will not require any antibiotics patient will be discharged on weaning dose of steroids and and patient was started on Symbicort once he is done with the systemic steroids patient will follow with PCP as an outpatient. Patient has alcohol withdrawal at home PHYSICAL EXAMINATION: GENERAL: The patient is alert and oriented x3, not in any acute distress. Well developed, well nourished. HEENT: Pupils are round and equally reacting to light. EOMI. No scleral icterus. No conjunctival pallor. Normocephalic, atraumatic. No pharyngeal erythema. No thyromegaly. CARDIOVASCULAR: S1 and S2 present. No murmurs, rubs, or gallops. PULMONARY: As mentioned above patient has good air entry into bilateral lung rizvi. ABDOMEN: Soft, nontender, nondistended, normoactive bowel sounds. No palpable organomegaly. MUSCULOSKELETAL: No joint swelling or deformity. EXTREMITIES: No cyanosis, clubbing, or pedal edema. NEUROLOGICAL: Gross neurological examination did not reveal any focal deficits. SKIN: No rashes. Assessment and Plan Plan: Acute hypoxic respiratory failure: Secondary to asthma exacerbation. Improved with systemic steroids -Multiple seasonal ALLERGIES -Patient has history of ADHD Patient Condition at Discharge: Stable Plan - Discharge Summary Discharge Rx Participant: No New Discharge Prescriptions: New Budesonide-Formot 160-4.5 Mcg [Symbicort 160-4.5 Mcg Inhaler] 2 puff INHALATION BID #1 inhaler predniSONE 10 mg PO DAILY #30 tab No Action FLUoxetine HCL [PROzac] 20 mg PO BID Dextroamphetamine/Amphetamine [Adderall] 30 mg PO BID Albuterol Sulfate [Proair Hfa] 2 puff INHALATION RT-Q4H PRN #1 PRN Reason: Shortness Of Breath Discharge Medication List Dextroamphetamine/Amphetamine [Adderall] 30 mg PO BID 05/09/17 [History] FLUoxetine HCL [PROzac] 20 mg PO BID 05/09/17 [History] Albuterol Sulfate [Proair Hfa] 2 puff INHALATION RT-Q4H PRN #1 05/10/17 [Rx] Budesonide-Formot 160-4.5 Mcg [Symbicort 160-4.5 Mcg Inhaler] 2 puff INHALATION BID #1 inhaler 12/15/17 [Rx] predniSONE 10 mg PO DAILY #30 tab 12/15/17 [Rx] Follow up Appointment(s)/Referral(s): Kenrick Wahl DO [Primary Care Provider] - 3 Days Discharge Disposition: HOME SELF-CARE
[2017-12-15 13:34] VITALS: PULSE 72
--- NOTE | 2017-12-26 08:02 | CDI ---
Last Revision, July 2017 Documentation Clarification Form Date: 12/26/17 From: Laquita Canchola Phone: If you have a question regarding this query, please contact Ирина Flores at [phone] between 8am and 5pm. Admit Date: 12/13/2017 10:09:00 AM Patient Name: René Mercado Visit Number: [id number] Discharge Date: 12/15/17 ATTENTION: The Clinical Documentation Specialists (CDI) and [facility] Coding Staff appreciate your assistance in clarifying documentation. Please respond to the clarification below the line at the bottom and electronically sign. The CDI & [facility] Coding staff will review the response and follow-up if needed. Please note: Queries are made part of the Legal Health Record. If you have any questions, please contact the author of this message via ITS. Dr. Lalo Bauer Asthma is documented in the H&P, discharge summary and progress notes. Patient history/risk factors: Clinical Indicators: Shortness of breath, chest pain and tightness. Radiology: No acute intrathoracic abnormailty. Vital Signs: T. 97.2, P. 105, R. 26, BP 156/68, Pulse Ox. 94 Treatment: Duoneb inhalation Medication: IV Solu-Medrol In your professional opinion, can you please further specify the following, if known? Severity: Mild intermittent Mild persistent Moderate persistent Severe persistent Other, please specify ____ Unable to determine Form or Type: Cough variant Childhood Exercise induced bronchospasm Extrinsic allergic Idiosyncratic Intrinsic nonallergic Late-onset Mixed Other, please specify____ Unable to determine Unable to determine MTDD
== END 2017-12-15 14:33 | disposition home or self-care (01) | DRG 202 ==
LOC: EC 07:32 → 4MS4W 10:09
PROVIDERS: ADMIT Internal Medicine; ATTEND Internal Medicine
DX: J45.902 Unspecified asthma with status asthmaticus (principal); J96.01 Acute respiratory failure with hypoxia; F90.9 Attention-deficit hyperactivity disorder, unspecified type; Z79.51 Long term (current) use of inhaled steroids; Z79.899 Other long term (current) drug therapy; Z79.52 Long term (current) use of systemic steroids; Z91.013 Allergy to seafood
CPT/HCPCS: 36415; 71046; 80053; 82550; 82553; 83735; 83880; 84484; 85025; 85379; 85610; 85730; 93005; 94640; 96361; 96365; 96366; 99291